=== PATIENT | female | born 1990 | race Caucasian/White ===

== ENCOUNTER 2019-01-05 00:52 | Emergency (ER) | payer MEDICAID ==
[~2019-01-05] VITALS: Ht 157.5 cm; Wt 76.0 kg
[2019-01-05 01:08] VITALS: BP 147/81
== END 2019-01-05 06:17 | disposition left against medical advice (07) ==
LOC: ER 00:52
DX: Z53.21 Procedure and treatment not carried out due to patient leaving prior to being seen by health care provider (principal)